=== PATIENT | female | born 1980 | race Caucasian/White ===

== ENCOUNTER → 2020-10-02 14:20 | Outpatient (CLI) | payer OTHER, SELFPAY ==
[2020-10-02 14:35] LABS: Chloride 109 mmol/L (98-107); Potassium 3.8 mmoL/L (3.5-5.1); Sodium 143 mmol/L (136-145)
[2020-10-02 14:37] LABS: Blood Urea Nitrogen 5 mg/dl (7-17); Estimated Glomerular Filt Rate 79 ml/min (>60); GFR (African American) 96 ML/MIN (>60)
[2020-10-02 14:38] LABS: Alanine Aminotransferase 21 U/L (12-78); Albumin Level 4.4 g/dl (3.5-5.0); Albumin/Globulin Ratio 1.5 (1.1-1.8); Alkaline Phosphatase 72 U/L (38-126); Anion Gap 12.8 mEq/L (5-15); Aspartate Amino Transferase 26 U/L (14-36); Bilirubin,Total 0.4 mg/dl (0.2-1.3); Calcium 9.5 mg/dl (8.4-10.2); Carbon Dioxide 25 mmol/L (22.0-30.0); Cholesterol 273 mg/dl (140-200); Globulin 2.9 g/dL (1.3-3.2); Glucose 109 mg/dl (74-100); HDL Cholesterol 47 mg/dl (40-60); Total Protein,Serum 7.3 g/dl (6.3-8.2); Triglycerides 285 mg/dl (30-150); VLDL Cholesterol 57 mg/dL (0-40)
[2020-10-02 14:41] LABS: Basophils % 0.6 % (0.1-2.0); Eosinophils # 0.1 K/mm3 (0.0-0.4); Eosinophils % 1.4 % (0.1-12.0); Hematocrit 40.6 % (37.0-47.0); Hemoglobin 12.6 g/dL (12.2-16.2); Lymphocytes # 1.9 K/mm3 (0.7-4.5); Lymphocytes % 37.9 % (10-50); Mean Corpuscular HGB Conc 31.1 g/dL (31.8-35.4); Mean Corpuscular Hemoglobin 29.2 pg (27.0-31.2); Mean Corpuscular Volume 93.9 fl (81-99); Mean Platelet Volume 8.5 fl (7.4-10.4); Monocytes # 0.3 K/mm3 (0.1-1.0); Monocytes % 5.1 % (1.7-9.3); Neutrophils # 2.8 K/mm3 (1.8-7.8); Platelet Count 233 K/mm3 (142-424); Red Blood Count 4.32 M/mm3 (4.20-5.40); Red Cell Distribution Width 13.5 % (11.5-17.5); White Blood Count 5.1 K/mm3 (4.8-10.8)
[2020-10-02 14:54] LABS: Direct LDL Cholesterol 132.42 mg/dL (100-129)
[2020-10-02 14:57] LABS: T4 (Thyroxine) 9.6 ug/dl (5.53-11.0)
[2020-10-02 14:58] LABS: 25-OH Vitamin D, Total 18.2 ng/mL (30-100)
[2020-10-02 15:10] LABS: Thyroid Stimulating Hormone 3.06 uIU/mL (0.465-4.68)
[2020-10-02 16:13] LABS: Chol/HDL Ratio 5.8 (1-3.5)
== END ==
PROVIDERS: Visit Provider Family Medicine
DX: R10.9 Unspecified abdominal pain (principal); I10 Essential (primary) hypertension; R53.83 Other fatigue; E55.9 Vitamin D deficiency, unspecified
CPT/HCPCS: 80053; 80061; 82306; 84436; 84443; 85025; 87086

== ENCOUNTER 2020-10-02 20:52 | Emergency (ER) | payer OTHER, SELFPAY ==
[2020-10-02 21:04] VITALS: BP 193/102; PULSE 75; RESP 17; TEMP 36.7; O2SAT 99; BMI 26.6
--- NOTE | 2020-10-02 21:09 | CT_ITS ---
PROCEDURE: CT ABDOMEN PELVIS W CON CLINICAL INDICATION: abd pain Abdominal pain with nausea COMPARISON: No exams were available for comparison TECHNIQUE: IV Contrast: 75ML Isovue 370 Oral Contrast None Axial images obtained with sagittal and coronal reformats. All CT scans at the facility use one or more dose reduction, viz: automated exposure control, ma/kV adjustment per patient size (including targeted exams where dose is matched to indication, i.e. head), or iterative reconstruction technique. FINDINGS: LOWER THORAX: There is atelectatic or fibrotic change in the right middle lobe. A noncalcified 5 mm nodules present in the right middle lobe. There is a calcified granuloma in the right lower lobe. There are bilateral breast implants ABDOMEN & PELVIS: Status post cholecystectomy with mild biliary ectasia. The liver, spleen, adrenal glands, pancreas, and kidneys have an unremarkable appearance. No renal or ureteral calculi. No hydronephrosis. There are few scattered small retroperitoneal lymph nodes. There is haziness of the fat at the origin of the celiac artery and SMA. Prior appendectomy. Mild amount of retained colonic feces is noted. Small bowel gas pattern is nonspecific. No evidence of intestinal obstruction. Status post hysterectomy. No acute bony anomalies. IMPRESSION: 1. Stranding of the fat around the aorta SMA and iliac origin which may be seen with aortitis or retroperitoneal fibrosis. Follow-up suggested. 2. Noncalcified 5 mm nodule right middle lobe. Consider 6-12 month follow-up. 3. Mild amount of retained colonic feces Dictated by: Zaheer Storey MD 10/03/2020 09:25 Zaheer Storey MD in [place] 10/03/2020 09:25
[2020-10-02 21:14] LABS: Microscopic, Urine URINE MICROSCOPIC (MICROSCOPIC)
[2020-10-02 21:16] LABS: Appearance,Urine CLEAR (Clear); Bilirubin,Urine Negative (Negative); Blood, Urine Negative (Negative); Color,Urine YELLOW (Yellow); Glucose,Urine (UA) Negative (Negative); Ketones,Urine Negative (Negative); Leukocyte Esterase,Urine Negative (Negative); Nitrate,Urine Negative (Negative); Protein,Urine Negative (Negative); Urobilinogen,Urine 0.2 EU/dl (0.2)
[2020-10-02 21:19] LABS: Amorphous Sediment,Urine Trace /lpf
[2020-10-02 21:32] LABS: Alanine Aminotransferase 22 U/L (12-78); Alkaline Phosphatase 69 U/L (38-126); Amylase 80 U/L (30-110); Anion Gap 13.7 mEq/L (5-15); Aspartate Amino Transferase 29 U/L (14-36); Bilirubin,Direct 0.1 mg/dl (0.0-0.4); Bilirubin,Indirect 0.3 mg/dL (0.0-0.9); Bilirubin,Total 0.4 mg/dl (0.2-1.3); Bilirubin,Unconjugated 0.3 mg/dL (0.0-1.1); Blood Urea Nitrogen 4 mg/dl (7-17); Calcium 9.7 mg/dl (8.4-10.2); Carbon Dioxide 26 mmol/L (22.0-30.0); Chloride 106 mmol/L (98-107); Creatinine Clearance Estimated 113 mL/min (50-200); Estimated Glomerular Filt Rate 79 ml/min (>60); GFR (African American) 96 ML/MIN (>60); Lipase 88 U/L (23-300); Potassium 3.7 mmoL/L (3.5-5.1); Sodium 142 mmol/L (136-145); Total Protein,Serum 8.5 g/dl (6.3-8.2)
[2020-10-02 21:33] LABS: Basophils # 0.1 K/mm3 (0-0.2); Basophils % 0.6 % (0.1-2.0); Eosinophils # 0.1 K/mm3 (0.0-0.4); Eosinophils % 0.9 % (0.1-12.0); Glucose 84 mg/dl (74-100); Lymphocytes # 2.6 K/mm3 (0.7-4.5); Mean Corpuscular HGB Conc 33.1 g/dL (31.8-35.4); Mean Corpuscular Hemoglobin 30.3 pg (27.0-31.2); Mean Corpuscular Volume 91.4 fl (81-99); Mean Platelet Volume 7.7 fl (7.4-10.4); Monocytes # 0.3 K/mm3 (0.1-1.0); Monocytes % 3.8 % (1.7-9.3); Neutrophils # 5.5 K/mm3 (1.8-7.8); Neutrophils % 64.7 % (37.0-80.0); Platelet Count 238 K/mm3 (142-424); Red Cell Distribution Width 13.5 % (11.5-17.5); White Blood Count 8.5 K/mm3 (4.8-10.8)
[2020-10-02 21:34] LABS: Hemoglobin 14.2 g/dL (12.2-16.2)
[2020-10-02 21:37] LABS: C-Reactive Protein 7.6 mg/L (0-4)
[2020-10-02 21:49] LABS: Erythrocyte Sedimentation Rate 18 mm/hr (0-20)
[2020-10-02 22:15] VITALS: BP 175/98; PULSE 82; RESP 18; O2SAT 98
--- NOTE | 2020-10-02 22:28 | [facility].EDNVD ---
ED Disposition Clinical Impression: Flank pain, acute Disposition: Home, Self-Care Condition on Discharge: Good Instructions: DI for Flank Pain Additional Instructions: call pcp for follow up Referrals: Terry Barba MD [Primary Care Provider] - - Critical Care Critical Care Time: No Attestation: On 10/02/20, the high probability of a clinically significant, sudden or life threatening deterioration of the following system(s) required my full and direct attention, intervention and personal management. The time I documented below is in addition to time spent performing reported procedures but includes the following listed in this critical care notation. Medical Decision Making - Medical Records Medical records reviewed: Yes: I reviewed the patient's medical records. - Quang Inquiry Pt receiving controlled substance: No Vital Signs: 10/02/20 21:04 Temperature 98.0 F Temperature Source Oral Pulse Rate [Right Brachial] 75 Respiratory Rate 17 Blood Pressure [Right Arm] 193/102 H Blood Pressure Mean [Right Arm] 132 Blood Pressure Source [Right Arm] Automatic Cuff Blood Pressure Position [Right Arm] Sitting 02 Sat by Pulse Oximetry 99 Oxygen Delivery Method Room Air - Lab Data Lab results reviewed: Yes: I reviewed the patient's lab results. Lab Results 10/02/20 20:08: Urine Color Yellow, Urine Appearance Clear, Urine pH 7.0, Ur Specific [place] 1.010, Urine Protein Negative, Urine Glucose (UA) Negative, Urine Ketones Negative, Urine Blood Negative, Urine Nitrate Negative, Urine Bilirubin Negative, Urine Urobilinogen 0.2, Ur Leukocyte Esterase Negative, Amorphous Sediment Trace 10/02/20 21:10: WBC 8.5 D, RBC 4.70, Hgb 14.2 D, Hct 43.0, MCV 91.4, MCH 30.3, MCHC 33.1, RDW 13.5, Plt Count 238, MPV 7.7, Neut % (Auto) 64.7, Lymph % (Auto) 30.0, [place] % (Auto) 3.8, Eos % (Auto) 0.9, Baso % (Auto) 0.6, Neut # (Auto) 5.5, Lymph # (Auto) 2.6, [place] # (Auto) 0.3, Eos # (Auto) 0.1, Baso # (Auto) 0.1 10/02/20 21:10: Sodium 142, Potassium 3.7, Chloride 106, Carbon Dioxide 26, Anion Gap 13.7, BUN 4 L, Creatinine 0.80, Estimated Creat Clear 113, Estimated GFR 79, Est GFR ( Amer) 96, Glucose 84 D, Calcium 9.7, Total Bilirubin 0.4, Direct Bilirubin 0.1, Conjugated Bilirubin 0.0, Indirect Bilirubin 0.3, Unconjugated Bilirubin 0.3, AST 29, ALT 22, Alkaline Phosphatase 69, C-Reactive Protein 7.6 H, Total Protein 8.5 H, Albumin 5.0 D, Amylase 80, Lipase 88 10/02/20 21:10: ESR 18 Result diagrams: 10/02/20 21:10 10/02/20 21:10 Orders (Tests/Meds): ED MEDICATIONS Generic Name Dose Route Start Last Admin Trade Name Freq PRN Reason Stop Dose Admin Sodium Chloride 1,000 mls @ 999 mls/hr 10/02/20 21:15 10/02/20 21:18 Sod Chlor 0.9% 1000ml Bag IV 10/02/20 22:15 999 mls/hr .[id number] MAYCOL Administration Discontinued Medications Generic Name Dose Route Start Last Admin Trade Name Freq PRN Reason Stop Dose Admin Iopamidol 70 ml 10/02/20 21:46 10/02/20 21:47 Iopamidol-370 (76%);100ml Bottle IV 10/02/20 21:47 70 ml ONCE ONE Administration Ketorolac Tromethamine 30 mg 10/02/20 21:59 10/02/20 22:00 Ketorolac 30mg/Ml Vial IV 10/02/20 22:00 30 mg ONCE ONE Administration Ondansetron HCl 4 mg 10/02/20 21:59 10/02/20 22:00 Ondansetron 4mg/2ml Vial IV 10/02/20 22:00 4 mg ONCE ONE Administration Sodium Chloride 10 ml 10/02/20 21:46 10/02/20 21:47 Sodium Chloride 0.9% 10ml Syr (Rad Only) IV 10/02/20 21:47 10 ml ONCE ONE Administration ORDERS Category Date Time Status CT abdomen pelvis w con Stat Cat Scan 10/02/20 21:09 Taken - CT Data CT Scan: Abdomen, Pelvis Time Received: 23:[address] Reviewed: Yes: I have viewed the radiologist's interpretation Preliminary Findings: Normal/NAD Medical Decision Narrative: nonspecic finding and will monitor at this time Nausea/Vomiting/Diarrhea HPI - General Chief complaint: Abdominal Pain Stated complaint: back pain
[2020-10-02 23:15] VITALS: BP 135/80; PULSE 85; RESP 20; TEMP 36.7
[2020-10-02 23:16] VITALS: BP 180/95; PULSE 81; RESP 17; TEMP 36.7; O2SAT 98
== END 2020-10-02 23:20 | disposition home or self-care (01) ==
PROVIDERS: Emergency Provider Emergency Medicine; PCP Family Medicine
DX: R10.11 Right upper quadrant pain (principal); I10 Essential (primary) hypertension; F41.8 Other specified anxiety disorders; K21.9 Gastro-esophageal reflux disease without esophagitis; F17.210 Nicotine dependence, cigarettes, uncomplicated
CPT/HCPCS: 74177; 80048; 80076; 81001; 82150; 83690; 85025; 85651; 86140; 96365; 96375; 99283; J2405; Q9967